=== PATIENT | female | born 1960 | race Caucasian/White ===

== ENCOUNTER 2016-12-27 17:16 | Emergency (ER) | payer OTHER ==
[2016-12-27 17:22] VITALS: TEMP 97.5
--- NOTE | 2016-12-27 18:05 | EDPHY ---
H & P Stated Complaint: constipation last few weeks Time Seen by Provider: 12/27/16 17:24 HPI/ROS: CHIEF COMPLAINT: Constipation x2 weeks HISTORY OF PRESENT ILLNESS: 56-year-old female with remote history of breast cancer and bilateral mastectomy complaining of 2 weeks of constipation. She has had small amounts of stool that of, and has been passing gas. She is able tolerate oral intake, last ate at 11:00 a.m. today with no vomiting. Positive mild nausea. She went to [facility] was referred to the ER for evaluation. She denies: Abdominal pain or distension, back or flank pain, incontinence, urinary abnormality, , radiculopathy PRIMARY CARE PROVIDER:Moinca REVIEW OF SYSTEMS: A ten point review of systems was performed and is negative with the exception of the items mentioned in the HPI PAST MEDICAL & SURGICAL HISTORY: Breast cancer. Bilateral mastectomy. SOCIAL HISTORY: Nonsmoker PHYSICAL EXAM (Prior to examination, patient consented to physical exam, hands were washed and my usual and customary physical exam procedures followed) 1) GENERAL: Well-developed, well-nourished, alert and oriented. Appears nontoxic . 2) HEAD: Normocephalic, atraumatic 3) HEENT: Pupils equal, round, reactive to light bilaterally. Sclera anicteric. 4) NECK: Full range of motion, no meningeal signs. 5) LUNGS: Clear auscultation bilaterally, no wheezes, no rhonchi, no retractions. 6) HEART: Regular rate and rhythm, no murmur, no heave, no gallop. 7) ABDOMEN: No guarding, no rebound, no focal tenderness, negative McBurney's, negative Hargrove's, negative Rovsing's, negative peritoneal sign, I am unable to elicit any abdominal pain on exam 8) MUSCULOSKELETAL: Moving all extremities, no focal areas of tenderness, no obvious trauma. No peripheral edema or discoloration. 9) BACK: No CVA tenderness, no midline vertebral tenderness, no fluctuance, no step-off, no obvious trauma, no visual or palpable abnormality. 10) SKIN: No rash, no petechiae. 11) rectal (with nurse Janis at bedside): Multiple non thrombosed hemorrhoids noted, positive rectal tone, minimal amount of stool in the rectal vault. DIFFERENTIAL DIAGNOSIS: in no particular include but limited to bowel obstruction, cauda equina, constipation - Personal History Current Tetanus/Diphtheria Vaccine: Yes - Medical/Surgical History Hx Asthma: No Hx Chronic Respiratory Disease: No Hx Diabetes: No Hx Cardiac Disease: No Hx Renal Disease: No Hx Cirrhosis: No Hx Alcoholism: No Hx HIV/AIDS: No Hx Splenectomy or Spleen Trauma: No Other PMH: breast cancer/mastectomy - Social History Smoking Status: Never smoked Constitutional: Initial Vital Signs Temperature (C) 36.4 C 12/27/16 17:20 Heart Rate 81 12/27/16 17:20 Respiratory Rate 17 12/27/16 17:20 Blood Pressure 133/86 H 12/27/16 17:20 O2 Sat (%) 97 12/27/16 17:20 O2 Delivery Mode Room Air Allergies/Adverse Reactions: Sulfa (Sulfonamide Antibiotics) Allergy (Verified 12/27/16 17:19) Home Medications: Medication Instructions Recorded Colace 12/27/16 KLONOPIN 12/27/16 Peg 3350/Na Sulf,Bicarb,Cl/KCl 1,000 ml PO ONCE #4000 ml 12/27/16 [Golytely (RX)] Medical Decision Making - Diagnostics Imaging Results: Imaging Impressions Abdomen CT 12/27/16 18:02 Impression: 1. Findings consistent with constipation with associated mild small bowel dilatation with multiple fluid-filled small bowel loops noted. 2. No findings to suggest acute appendicitis. 3. See above report for additional findings. Results called and discussed with Onofre EVANS on 12/27/2016 at 19:18 ED Course/Re-evaluation: 8:40 p.m.: Re-evaluation. Discussed her imaging results. She has been given an enema and is currently awaiting impact of enema. Patient has had a bowel movement while in the ER is feeling improvement symptoms would like to be discharged home. Doubt cauda equina. Doubt bowel obstruction.Care and management in consultation with secondary supervising physician Dr Irene . - Data Points Laboratory Results: Laboratory Results 12/27/16 18:15 12/27/16 18:15 12/27/16 12/27/16 12/27/16 18:18 18:15 18:15 WBC 7.01 10^3/uL 10^3/uL (3.80-9.50) RBC 4.77 10^6/uL 10^6/uL (4.18-5.33) Hgb 14.5 g/dL g/dL (12.6-16.3) POC Hgb 15.6 gm/dL gm/dL (12.6-16.3) Hct 42.8 % % (38.0-47.0) POC Hct 46 % % (38-47) MCV 89.7 fL fL (81.5-99.8) MCH 30.4 pg pg (27.9-34.1) MCHC 33.9 g/dL g/dL (32.4-36.7) RDW 12.1 % % (11.5-15.2) Plt Count 281 10^3/uL 10^3/uL (150-400) MPV 9.6 fL fL (8.7-11.7) Neut % (Auto) 67.5 % % (39.3-74.2) Lymph % (Auto) 24.4 % % (15.0-45.0) [place] % (Auto) 6.3 % % (4.5-13.0) Eos % (Auto) 1.1 % % (0.6-7.6) Baso % (Auto) 0.4 % % (0.3-1.7) Nucleat RBC Rel Count 0.0 % % (0.0-0.2) Absolute Neuts (auto) 4.73 10^3/uL 10^3/uL (1.70-6.50) Absolute Lymphs (auto) 1.71 10^3/uL 10^3/uL (1.00-3.00) Absolute Monos (auto) 0.44 10^3/uL 10^3/uL (0.30-0.80) Absolute Eos (auto) 0.08 10^3/uL 10^3/uL (0.03-0.40) Absolute Basos (auto) 0.03 10^3/uL 10^3/uL (0.02-0.10) Absolute Nucleated RBC 0.00 10^3/uL 10^3/uL (0-0.01) Immature Gran % 0.3 % % (0.0-1.1) Immature Gran # 0.02 10^3/uL 10^3/uL (0.00-0.10) POC Sodium 144 mEq/L mEq/L (134-144) Sodium 144 mEq/L mEq/L (134-144) POC Potassium 4.1 mEq/L mEq/L (3.3-5.0) Potassium 4.5 mEq/L mEq/L (3.5-5.2) POC Chloride 102 mEq/L mEq/L (97-110) Chloride 108 mEq/L mEq/L (97-110) Carbon Dioxide 24 mEq/l mEq/l (22-31) Anion Gap 12 mEq/L mEq/L (8-16) POC BUN 13 mg/dL mg/dL (7-23) BUN 13 mg/dL mg/dL (7-23) Creatinine 0.8 mg/dL mg/dL (0.6-1.0) POC Creatinine 0.8 mg/dL mg/dL (0.6-1.0) Estimated GFR > 60 Glucose 91 mg/dL mg/dL (70-100) POC Glucose 95 mg/dL mg/dL (70-100) Calcium 10.1 mg/dL mg/dL (8.5-10.4) Point of Care Test Results: 12/27/16 18:18 POC Sodium 144 POC Potassium 4.1 POC Chloride 102 POC BUN 13 POC Creatinine 0.8 POC Glucose 95 Departure - Departure Disposition: Home, Routine, Self-Care Clinical Impression: Constipation Qualifiers: Constipation type: unspecified constipation type Qualified Code(s): K59.00 - Constipation, unspecified Condition: Good Instructions: Constipation (ED), High Fiber Diet (ED), Fleet Enema (ED) Additional Instructions: Seek immediate medical attention if you develop new or worsening symptoms, if you develop fevers, chills, inability to tolerate oral intake or any other symptoms that concerns you. Referrals: Gilmar Wise MD [[place] Primary Care Provider] - As per Instructions Prescriptions: Peg 3350/Na Sulf,Bicarb,Cl/KCl [Golytely (RX)] 1,000 ml PO ONCE #4000 ml
[2016-12-27] MEDS ORDERED: ACETAMINOPHEN 325 MG TAB ONE (18:24)
[2016-12-27] MEDS ORDERED: IOPAMIDOL (ISOVUE-300) 100 ML BTL ONE (18:30)
[2016-12-27 18:38] LABS: % IMMATURE GRANULYOCYTES 0.3 % (0.0-1.1); ABSOLUTE IMMATURE GRANULOCYTES 0.02 10^3/uL (0.00-0.10); ADD DIFF? NO; ADD MORPH? NO; ADD SCAN? NO; ATYPICAL LYMPHOCYTE FLAG 10 (0-99); FRAGMENT RBC FLAG 0 (0-99); HEMATOCRIT 42.8 % (38.0-47.0); HEMOGLOBIN 14.5 g/dL (12.6-16.3); LEFT SHIFT FLG 0 (0-99); LIPEMIA HEMOLYSIS FLAG 90 (0-99); MEAN CELL HEMOGLOBIN 30.4 pg (27.9-34.1); MEAN CELL HEMOGLOBIN CONCENTR. 33.9 g/dL (32.4-36.7); MEAN CELL VOLUME 89.7 fL (81.5-99.8); MEAN PLATELET VOLUME 9.6 fL (8.7-11.7); PLATELET CLUMPS FLAG 0 (0-99); PLATELET COUNT 281 10^3/uL (150-400); RED BLOOD CELL COUNT 4.77 10^6/uL (4.18-5.33); RED CELL DISTRIBUTION WIDTH 12.1 % (11.5-15.2)
[2016-12-27 18:52] LABS: ANION GAP 12 mEq/L (8-16); CALCIUM 10.1 mg/dL (8.5-10.4); CARBON DIOXIDE 24 mEq/l (22-31); CHLORIDE 108 mEq/L (97-110); CREATININE 0.8 mg/dL (0.6-1.0); GLOMERULAR FILTRATION RATE > 60; GLUCOSE 91 mg/dL (70-100); POTASSIUM 4.5 mEq/L (3.5-5.2); SODIUM 144 mEq/L (134-144)
[2016-12-27 22:04] VITALS: BP 138/95; PULSE 71; RESP 16; O2SAT 95
== END 2016-12-27 22:03 | disposition home or self-care (01) ==
DX: K59.00 Constipation, unspecified (principal); Z85.3 Personal history of malignant neoplasm of breast
CPT/HCPCS: 82947-QW; Q9967

== ENCOUNTER 2017-05-10 06:00 | Emergency (ER) | payer OTHER ==
[2017-05-10 06:08] VITALS: RESP 18
[2017-05-10] MEDS ORDERED: ONDANSETRON 4 MG/2 ML VIAL IVP ONE (06:10)
[2017-05-10] MEDS ORDERED: HYDROmorphONE/DILAUDID 1 MG/ML INJ IVP ONE (06:10)
[2017-05-10] MEDS ORDERED: NS 1,000 ML IV ONE (06:10)
[2017-05-10 06:15] LABS: % IMMATURE GRANULYOCYTES 0.3 % (0.0-1.1); ABSOLUTE IMMATURE GRANULOCYTES 0.02 10^3/uL (0.00-0.10); ADD DIFF? NO; ADD MORPH? NO; ADD SCAN? NO; ATYPICAL LYMPHOCYTE FLAG 0 (0-99); FRAGMENT RBC FLAG 0 (0-99); HEMATOCRIT 40.7 % (38.0-47.0); HEMOGLOBIN 14.1 g/dL (12.6-16.3); LEFT SHIFT FLG 0 (0-99); LIPEMIA HEMOLYSIS FLAG 90 (0-99); MEAN CELL HEMOGLOBIN 31.3 pg (27.9-34.1); MEAN CELL HEMOGLOBIN CONCENTR. 34.6 g/dL (32.4-36.7); MEAN CELL VOLUME 90.4 fL (81.5-99.8); MEAN PLATELET VOLUME 9.6 fL (8.7-11.7); PLATELET CLUMPS FLAG 10 (0-99); PLATELET COUNT 293 10^3/uL (150-400); RED CELL DISTRIBUTION WIDTH 11.9 % (11.5-15.2)
[2017-05-10] MEDS ORDERED: IOPAMIDOL (ISOVUE-300) 100 ML BTL ONE (06:21)
--- NOTE | 2017-05-10 06:28 | EDPHY ---
H & P Stated Complaint: Abdominal pain Source: Patient Exam Limitations: No limitations - Personal History Current Tetanus/Diphtheria Vaccine: Yes Current Tetanus Diphtheria and Acellular Pertussis (TDAP): Yes - Medical/Surgical History Hx Asthma: No Hx Chronic Respiratory Disease: No Hx Diabetes: No Hx Cardiac Disease: No Hx Renal Disease: No Hx Cirrhosis: No Hx Alcoholism: No Hx HIV/AIDS: No Hx Splenectomy or Spleen Trauma: No Other PMH: breast cancer/mastectomy - Social History Smoking Status: Never smoked Time Seen by Provider: 05/10/17 06:01 HPI/ROS: HPI The patient presents brought in by ambulance for abdominal pain that awoke her from sleep at 3:00 a.m.. She feels in her upper abdomen, it feels sharp in nature and it became progressively worse. She called 911 and the paramedics came to her house, she then vomited a small amount and felt better so she declined transport. However the pain persisted and became more severe. She denies any radiation of the pain. Her last bowel movement was today and was normal. She has been taking ibuprofen frequently for headaches. She does not drink alcohol. She denies any injury. REVIEW OF SYSTEMS Constitutional: No fever, no chills. Eyes: No discharge. ENT: No sore throat. Cardiovascular: No chest pain, no palpitations. Respiratory: No cough, no shortness of breath. Gastrointestinal: See HPI Genitourinary: No hematuria. Musculoskeletal: No back pain. Skin: No rashes. Neurological: No headache. PMHx: Healthy, occasional headaches Soc Hx: No alcohol use PHYSICAL General Appearance: Alert, uncomfortable appearing Eyes: Pupils equal and round no pallor or injection ENT, Mouth: Mucous membranes moist Respiratory: There are no retractions, lungs are clear to auscultation Cardiovascular: Regular rate and rhythm Gastrointestinal: Abdomen is soft with tenderness in the left lower quadrant, no masses, bowel sounds normal Neurological: A&O, moves all extremities Skin: Warm and dry, no rashes Musculoskeletal: Neck is supple non tender Extremities: symmetrical, full range of motion Psychiatric: Patient is oriented X 3, there is no agitation (Bev Ardon) I assumed care of this patient from Dr. Ardon at 7:00 a.m.. At 8: 20 she had reported to the nurse that she was feeling better and that she felt ready to go. When I examined her her abdominal pain was markedly improved, however she complained of nausea. She was given Zofran 0DT and a prescription has been written for Zofran 0DT. Her abdomen is soft and nontender. She feels comfortable returning home. I spoke with her about the possibility of vomiting with this illness. We reviewed the danger signs that should prompt her to be re -evaluated with these including worsening abdominal pain, intractable vomiting or diarrhea, and persistent fever. (Janneth Hargrove) Constitutional: Initial Vital Signs Temperature (C) 36.7 C 05/10/17 06:05 Heart Rate 53 L 05/10/17 06:05 Respiratory Rate 18 05/10/17 06:05 Blood Pressure 134/89 H 05/10/17 06:05 O2 Sat (%) 99 05/10/17 06:05 O2 Delivery Mode Room Air Allergies/Adverse Reactions: Sulfa (Sulfonamide Antibiotics) Allergy (Verified 12/27/16 17:19) Home Medications: Medication Instructions Recorded Colace 12/27/16 KLONOPIN 12/27/16 Peg 3350/Na Sulf,Bicarb,Cl/KCl 1,000 ml PO ONCE #4000 ml 12/27/16 [Golytely (RX)] Famotidine [Pepcid 20 MG (*)] 20 mg PO BID #30 tab 05/10/17 Ondansetron Odt [Zofran Odt 4 mg 4 mg PO Q4 PRN #10 tab 05/10/17 (RX)] Medical Decision Making Differential Diagnosis: 57-year-old healthy female brought in by ambulance for upper abdominal pain beginning about 4 hours ago. Pain is sharp, associated with nausea and vomiting. No prior history of abdominal operations. Current NSAID use. On exam, she is uncomfortable appearing she is tender in her left lower quadrant. Differential diagnosis includes gastritis, acute diverticulitis, appendicitis, bowel perforation, ovarian torsion or cyst rupture less likely. In the emergency department, patient is given fluids for her vomiting, Zofran, Dilaudid for pain. Her symptoms improved, though were not completely resolved. Labs were checked and were relatively unremarkable. CT scan of her abdomen was performed, she had some dysmotility of the small bowel present, however no other acute findings. She could very well have gastritis as the explanation for her symptoms. I will give her an H2 valeria here and we will continue to monitor her. The case will be signed out to the oncoming provider Dr. Hargrove to reassess her pain. If her pain is improved and she feels well enough to go home, she certainly can be discharged. If her pain persists, she may need to be admitted for symptomatic relief. I am not concerned for any GI bleed based on her symptomatology. (Bev Ardon) - Data Points Laboratory Results: Laboratory Results 05/10/17 06:11 05/10/17 06:11 05/10/17 05/10/17 05/10/17 06:52 06:11 06:11 WBC 6.03 10^3/uL 10^3/uL (3.80-9.50) RBC 4.50 10^6/uL 10^6/uL (4.18-5.33) Hgb 14.1 g/dL g/dL (12.6-16.3) Hct 40.7 % % (38.0-47.0) MCV 90.4 fL fL (81.5-99.8) MCH 31.3 pg pg (27.9-34.1) MCHC 34.6 g/dL g/dL (32.4-36.7) RDW 11.9 % % (11.5-15.2) Plt Count 293 10^3/uL 10^3/uL (150-400) MPV 9.6 fL fL (8.7-11.7) Neut % (Auto) 54.3 % % (39.3-74.2) Lymph % (Auto) 35.3 % % (15.0-45.0) [place] % (Auto) 7.6 % % (4.5-13.0) Eos % (Auto) 1.8 % % (0.6-7.6) Baso % (Auto) 0.7 % % (0.3-1.7) Nucleat RBC Rel Count 0.0 % % (0.0-0.2) Absolute Neuts (auto) 3.27 10^3/uL 10^3/uL (1.70-6.50) Absolute Lymphs (auto) 2.13 10^3/uL 10^3/uL (1.00-3.00) Absolute Monos (auto) 0.46 10^3/uL 10^3/uL (0.30-0.80) Absolute Eos (auto) 0.11 10^3/uL 10^3/uL (0.03-0.40) Absolute Basos (auto) 0.04 10^3/uL 10^3/uL (0.02-0.10) Absolute Nucleated RBC 0.00 10^3/uL 10^3/uL (0-0.01) Immature Gran % 0.3 % % (0.0-1.1) Immature Gran # 0.02 10^3/uL 10^3/uL (0.00-0.10) Sodium 142 mEq/L mEq/L (134-144) Potassium 4.5 mEq/L mEq/L (3.5-5.2) Chloride 102 mEq/L mEq/L (97-110) Carbon Dioxide 29 mEq/l mEq/l (22-31) Anion Gap 11 mEq/L mEq/L (8-16) BUN 12 mg/dL mg/dL (7-23) Creatinine 0.8 mg/dL mg/dL (0.6-1.0) Estimated GFR > 60 Glucose 125 mg/dL H mg/dL (70-100) Calcium 9.8 mg/dL mg/dL (8.5-10.4) Total Bilirubin 0.3 mg/dL mg/dL (0.1-1.4) Conjugated Bilirubin 0.0 mg/dL mg/dL (0.0-0.5) Unconjugated Bilirubin 0.3 mg/dL mg/dL (0.0-1.1) AST 17 IU/L IU/L (14-46) ALT 26 IU/L IU/L (9-52) Alkaline Phosphatase 86 IU/L IU/L (38-126) Total Protein 7.5 g/dL g/dL (6.3-8.2) Albumin 4.5 g/dL g/dL (3.5-5.0) Lipase 108 IU/L IU/L (23-300) Urine Color YELLOW Urine Appearance CLEAR Urine pH 5.0 (5.0-7.5) Ur Specific [place] 1.017 (1.002-1.030) Urine Protein NEGATIVE (NEGATIVE) Urine Ketones NEGATIVE (NEGATIVE) Urine Blood NEGATIVE (NEGATIVE) Urine Nitrate NEGATIVE (NEGATIVE) Urine Bilirubin NEGATIVE (NEGATIVE) Urine Urobilinogen NEGATIVE EU EU (0.2-1.0) Ur Leukocyte Esterase TRACE H (NEGATIVE) Urine RBC 3-5 /hpf H /hpf (0-3) Urine WBC 1-3 /hpf /hpf (0-3) Ur Epithelial Cells TRACE /lpf /lpf (NONE-1+) Hyaline Casts 1-5 /lpf /lpf (0-1) Urine Mucus TRACE /lpf /lpf (NONE-1+) Urine Glucose NEGATIVE (NEGATIVE) Medications Given: Al Hydroxide/Mg Hydroxide (Maalox Susp) 30 ml PO EDNOW ONE Stop: 05/10/17 07:16 Last Admin: 05/10/17 07:26 Dose: 30 ml Famotidine/Sodium Chloride (Pepcid 20 Mg (Premix)) 50 mls @ 200 mls/hr IV EDNOW ONE Stop: 05/10/17 07:29 Last Admin: 05/10/17 07:27 Dose: 50 mls Discontinued Medications Hydromorphone HCl (Dilaudid) 0.5 mg IVP EDNOW ONE Stop: 05/10/17 06:11 Last Admin: 05/10/17 06:18 Dose: 0.5 mg Sodium Chloride (Ns) 1,000 mls @ 0 mls/hr IV EDNOW ONE; Wide Open PRN Reason: Protocol Stop: 05/10/17 06:11 Last Admin: 05/10/17 06:17 Dose: 1,000 mls Ondansetron HCl (Zofran) 4 mg IVP EDNOW ONE Stop: 05/10/17 06:11 Last Admin: 05/10/17 06:18 Dose: 4 mg Departure - Departure Disposition: Home, Routine, Self-Care Clinical Impression: Upper abdominal pain Condition: Good Instructions: Gastritis (ED), Diet for Stomach Ulcers and Gastritis (ED), Acute Abdominal Pain (ED) Additional Instructions: I recommend that you stop using the ibuprofen if you can to see if this helps to improve your pain. You can switch to Tylenol instead. You can take the prescription I gave you for pain in addition to Maalox or Tums to see if this helps too. Return to the emergency department if your worse in any way. Otherwise, I have referred you to a substation wireman for follow-up. Referrals: Raimundo Romo MD [Medical Doctor] - As per Instructions Prescriptions: Famotidine [Pepcid 20 MG (*)] 20 mg PO BID #30 tab Ondansetron Odt [Zofran Odt 4 mg (RX)] 4 mg PO Q4 PRN #10 tab PRN Reason: nausea
[2017-05-10 06:37] LABS: ALANINE AMINOTRANSFERASE 26 IU/L (9-52); ALBUMIN 4.5 g/dL (3.5-5.0); ALKALINE PHOSPHATASE 86 IU/L (38-126); ANION GAP 11 mEq/L (8-16); ASPARTATE AMINOTRANSFERASE 17 IU/L (14-46); BILIRUBIN,TOTAL 0.3 mg/dL (0.1-1.4); BILIRUBIN-UNCONJUGATED 0.3 mg/dL (0.0-1.1); CALCIUM 9.8 mg/dL (8.5-10.4); CARBON DIOXIDE 29 mEq/l (22-31); CHLORIDE 102 mEq/L (97-110); CREATININE 0.8 mg/dL (0.6-1.0); GLOMERULAR FILTRATION RATE > 60; GLUCOSE 125 mg/dL (70-100); POTASSIUM 4.5 mEq/L (3.5-5.2); SODIUM 142 mEq/L (134-144); TOTAL PROTEIN 7.5 g/dL (6.3-8.2)
[2017-05-10 06:57] LABS: COLOR YELLOW; LEUKOCYTE ESTERASE,URINE TRACE (NEGATIVE); NITRITE,URINE NEGATIVE (NEGATIVE)
[2017-05-10 07:05] LABS: MUCUS TRACE /lpf (NONE-1+)
[2017-05-10] MEDS ORDERED: MAG HYDROX/AL HYDROX/SIMETH 30 ML UDCUP PO ONE (07:15)
[2017-05-10] MEDS ORDERED: FAMOTIDINE 20 MG/NACL 50 ML IV ONE (07:15)
[2017-05-10] MEDS ORDERED: FAMOTIDINE 20 MG/NACL/50 ML BAG IV ONE (07:26)
[2017-05-10] MEDS ORDERED: MAG HYDROX/AL HYDROX/SIMETH 30 ML UDCUP ONE (07:26)
[2017-05-10] MEDS ORDERED: ONDANSETRON DISINTEGRATING 4 MG TAB PO ONE ×2 (08:35→08:36)
[2017-05-10 08:51] VITALS: BP 133/69; PULSE 67; TEMP 98.4; O2SAT 97
== END 2017-05-10 08:49 | disposition home or self-care (01) ==
LOC: EDUNIT#
DX: R10.10 Upper abdominal pain, unspecified (principal); E86.9 Volume depletion, unspecified; Z85.3 Personal history of malignant neoplasm of breast
CPT/HCPCS: 96365; J1170; J2405; Q9967